=== PATIENT | female | born 2000 | race Caucasian/White ===

== ENCOUNTER 2019-03-08 02:43 | Inpatient (IN) | payer OTHER ==
[~2019-03-08] VITALS: Ht 157.5 cm; Wt 85.6 kg
[2019-03-08] VITALS (38 sets, daily range): BP systolic 92–139; BP diastolic 51–81
[2019-03-08] MEDS: LR 1,000 ML IV SCH ×3 (04:04→18:39)
[2019-03-08] MEDS ORDERED: LACTATED RINGER'S 1000 ML IV ONE (04:15)
[2019-03-08 04:19] LABS: MEAN CORPUSCULAR HEMOGLOBIN 28.2 pg (27.0-33.0); MEAN CORPUSCULAR HGB CONC 31.4 g/dl (32.0-36.5); MEAN CORPUSCULAR VOLUME 89.7 fl (80.0-96.0); PLATELET COUNT, AUTOMATED 335 10^3/uL (150-450); WHITE BLOOD COUNT 14.4 10^3/uL (4.0-10.0)
--- NOTE | 2019-03-08 04:37 | HPE ---
DATE OF ADMISSION: 03/08/2019 HISTORY: This lady is a 18-year-old 1, para 0, last menstrual period (LMP) 06/02/2018, estimated date of confinement (EDC) 03/09/2019 at 37 and 6 in active labor. No spontaneous rupture of membranes or vaginal loss. LABORATORIES: Labs are all negative, human immunodeficiency virus (HIV) negative, RPR negative, rubella immune. Varicella immune. Urine negative. Gonorrhea and chlamydia are negative. 1-hour glucose 106. Group B Streptococcus (GBS) negative. RISK FACTORS: She is a teen . Blood pressure is 132/70, respirations 18, temperature is 98.5, pulse was 85, blood pressure 132/70. Urine is 1030, pH 5, ketones +, trace blood. PHYSICAL EXAMINATION: On examination she appears distressed. Symphysis fundus height is 40. She is 2 cm -3, 100% effaced, vertex presenting, bulging membranes. She has a category one strip. Normocephalic, atraumatic. Neck: Full range of motion. Pupils equal and reactive to light. Distal pulses symmetric. No evidence of deep vein thrombosis (DVT), pulmonary embolism (PE) or superficial phlebitis. Chest is clear bilateral bases. No wheezes or rhonchi. No costovertebral angle (CVA) tenderness. Abdomen: Soft. Four quadrant bowel sounds are noted. Appropriate symphysis fundus height. She has no rashes, lesions or pruritus. She does have a nose ring. She has no arthralgia, myalgia or joint pains. No complaints of cough, wheeze, shortness of breath or dyspnea on exertion. No infection. No bleeding. Neuro complete. No incontinency, urgency or frequency. No nausea, vomiting, diarrhea or constipation. No diabetic issues. She has no abnormal Pap smear or sexually-transmitted disease (STDs). She was 17 years of age so does not have a Pap smear yet. PAST MEDICAL HISTORY: Past medical is unremarkable. PAST SURGICAL HISTORY: Unremarkable. FAMILY HISTORY: Noncontributory. SOCIAL HISTORY: She does not smoke, drink abuse drugs. She is to a soldier. No domestic violence and she has good support systems. We discussed the vaginal delivery. The delivery of baby through her vagina with possible assistance of forceps or vacuum if needed for maternal or indications. The forceps or vacuum device that can assist with vaginal delivery when normal pushing efforts cannot achieve delivery on their own or when delivery is needed in emergency for the baby's well-being, medications that may be required to augment labor in order to achieve vaginal delivery and episiotomy may be required to help baby deliver vaginally. She may also require repair of any lacerations or tears of the vagina or vulva that are caused by delivery spontaneously or otherwise. Emergencies can arise that require emergency section of delivery so quickly there is no time to do the full consent. However physician will discuss the reasoning for section basically quickly because it is the best method of delivery for the baby and well-being for that or the mother. In situations may be safer than prolonged labor and waiting for spontaneous vaginal delivery. The risks of vaginal delivery include bleeding, infection, injury to vagina, pelvic structures, injury to baby, damage to the uterus, reaction of anesthesia, rupture and remote possibility of hysterectomy or blood transfusion, hysterectomy is for life-threatening bleeding that we cannot keep under control. Uterine tachysystole, uterine rupture, heart rate abnormalities, need for emergency section or remote possibility of are hysterectomy and hemorrhage. The patient and her verbalized understanding of the risks and is anticipating the necessity of an epidural later on as she gets into more active labor. All questions were answered.
[2019-03-08] MEDS ORDERED: PROMETHAZINE INJ 25 MG/ML VIAL (J2550) As Ordered ONE (05:15)
[2019-03-08] MEDS ORDERED: PROMETHAZINE INJ 25 MG/ML VIAL (J2550) IV ONE (05:15)
[2019-03-08] MEDS ORDERED: BUTORPHANOL 2 MG/ML INJ (J0595) IV ONE (05:15)
[2019-03-08] MEDS ORDERED: BUTORPHANOL 2 MG/ML INJ (J0595) As Ordered ONE (05:16)
[2019-03-08] MEDS ORDERED: PRENTAB9 PO (05:46)
[2019-03-08] MEDS ORDERED: ZANTTAB PO (05:46)
--- NOTE | 2019-03-08 06:41 | NUR ---
0600 am unable to tollerate contractions reassessment no change cervix plan iv meds to early for epidural catagory 1 strip safe to proceed contractions q 8 minutes patient says pain level 10/10
--- NOTE | 2019-03-08 08:04 | IPNPDOC ---
Text Note Date of Service The patient was seen on 03/08/19. NOTE SBAR from Dr Bhatt Pain significant NST Cat 1, irreg ctx's Cx 5/100/-2/BBOW Epidural then recheck in 2 hrs, sooner prn Sessions A-FIB/LINK A-FIB History Current/History of A-Fib/PAF?: No VS,Fishbone, I+O VS, Fishbone, I+O Laboratory Tests 03/08/19 03:30 Red Blood Count 3.90 L, Mean Corpuscular Volume 89.7, Mean Corpuscular Hemoglobin 28.2, Mean Corpuscular Hemoglobin Concent 31.4 L, Red Cell Distribution Width 14.6 H Vital Signs Date Time Temp Pulse Resp B/P (MAP) Pulse Ox O2 Delivery O2 Flow Rate FiO2 03/08/19 06:26 98.2 81 16 108/56 (73) 03/08/19 05:20 100 I&O- Last 24 Hours up to 6 AM 03/08/19 06:00 Output Total 150 ml Balance -150 ml SESSIONS,BRODY Wright MD March 08, 2019 08:04
[2019-03-08] MEDS ORDERED: FENTANYL 2MCG/ML ROPIVACAINE 0.2% IN 0.9% NACL 100ML IVBAG As Ordered ONE (08:20)
[2019-03-08] MEDS ORDERED: NALBUPHINE HCL 10 MG/ML AMP (J2300) IV ONE (09:45)
[2019-03-08] MEDS: FENTANYL/ROPIVACAINE/NACL BAG 100 ML EPIDURAL SCH ×2 (10:20→19:02)
[2019-03-08] MEDS ORDERED: ONDANSETRON 4MG/2ML VIAL (J2405) IV PRN ×2 (11:15→21:00)
[2019-03-08] MEDS ORDERED: EPIDURAL COMMENT XX SCH (11:15)
[2019-03-08] MEDS ORDERED: REFRIGERATOR IV KEYS XX PRN (11:15)
[2019-03-08] MEDS ORDERED: NALOXONE INJ 0.4 MG/1 ML VIAL (J2310) IV PRN (11:15)
[2019-03-08] MEDS ORDERED: EPIDURAL/PCA KEYS XX PRN (11:15)
[2019-03-08] MEDS ORDERED: LACTATED RINGER'S 1000 ML IV PRN (11:15)
[2019-03-08] MEDS ORDERED: ePHEDrine SULFATE 25 MG/5 ML(5MG/ML) SYRINGE IV PRN (11:15)
[2019-03-08] MEDS ORDERED: diphenhydrAMINE INJ 50MG/ML VIAL (J1200) IV PRN (11:15)
[2019-03-08] MEDS ORDERED: LR 1,000 ML IV SCH ×2 (12:00→21:00)
[2019-03-08] MEDS ORDERED: OXYTOCIN DRIP 30 UNITS in APPROPRIATE DILUENT 1 EA IV SCH ×2 (14:00→21:01)
--- NOTE | 2019-03-08 14:01 | IPNPDOC ---
Text Note Date of Service The patient was seen on 03/08/19. NOTE At ~11 after epidural RN checked the pt, was 7 cm, BBOW. I was in the OR. I checked her at 1230 and the BBOW SROM'd, clr fluid, was 8-9 cm, all on the pt's right. Now with slight pos change, O station and 9 cm, all on the right still. Will start pitocin and recheck in 1-2 hrs, sooner prn. If no change at that time will place [facility]. Sessions A-FIB/LINK A-FIB History Current/History of A-Fib/PAF?: No VS,Fishbone, I+O VS, Fishbone, I+O Laboratory Tests 03/08/19 03:30 Red Blood Count 3.90 L, Mean Corpuscular Volume 89.7, Mean Corpuscular Hemoglobin 28.2, Mean Corpuscular Hemoglobin Concent 31.4 L, Red Cell Distribution Width 14.6 H Vital Signs Date Time Temp Pulse Resp B/P (MAP) Pulse Ox O2 Delivery O2 Flow Rate FiO2 03/08/19 13:06 99.7 03/08/19 12:58 81 18 113/56 (75) 03/08/19 05:20 100 I&O- Last 24 Hours up to 6 AM 03/08/19 06:00 Output Total 150 ml Balance -150 ml SESSIONS,BRODY Wright MD March 08, 2019 14:01
[2019-03-08] MEDS ORDERED: ACETAMINOPHEN TAB 650MG DOSE (2X325MG) PO ONE (14:15)
[2019-03-08] MEDS ORDERED: LR 1,000 ML IV ONE (14:30)
--- NOTE | 2019-03-08 16:30 | IPNPDOC ---
Text Note Date of Service The patient was seen on 03/08/19. NOTE NST Cat 2 with periods of decreased variability and a few isolated late decels. Ctx pattern looks a little dysfunctional, coupling. Cx C/C/+2 but LOP/LOT, slight asynclitism, tried to rotate the vtx but did not move past LOT. T's noted the last hour to be febrile, but heart rate is not tachycardic at this point. Start pushing, paying close attention to FHR. Sessions A-FIB/LINK A-FIB History Current/History of A-Fib/PAF?: No VS,Fishbone, I+O VS, Fishbone, I+O Laboratory Tests 03/08/19 03:30 Red Blood Count 3.90 L, Mean Corpuscular Volume 89.7, Mean Corpuscular H emoglobin 28.2, Mean Corpuscular Hemoglobin Concent 31.4 L, Red Cell Distribution Width 14.6 H Vital Signs Date Time Temp Pulse Resp B/P (MAP) Pulse Ox O2 Delivery O2 Flow Rate FiO2 03/08/19 16:00 100.2 03/08/19 15:59 80 18 103/51 (68) 03/08/19 05:20 100 I&O- Last 24 Hours up to 6 AM 03/08/19 06:00 Output Total 150 ml Balance -150 ml SESSIONS,BRODY Wright MD March 08, 2019 16:30
[2019-03-08] MEDS ORDERED: UNASYN 3 GM VIAL As Ordered ONE (16:36)
[2019-03-08] MEDS ORDERED: AMPICILLIN SOD/SULBACTAM SOD 3 GM in D5W MINI-BAG PLUS 100 ML IV SCH (17:00)
--- NOTE | 2019-03-08 18:06 | IPNPDOC ---
Text Note Date of Service The patient was seen on 03/08/19. NOTE FHT Cat 2 due to tachycardia, mostly mod pipe. Station +2, could not tell position now, significant mvmt of the vtx and no soft tissue caput present. Cont pushing, however had disc w pt and about my fears for CPD, that I will not attempt an operative vaginal delivery unless it is an outlet vacuum due to risks of shoulder dystocia and that if she has an arrest of descent will rec a . Stated understanding. Recheck ~3 hrs after started pushing. Watching FHT closely. Sessions A-FIB/LINK A-FIB History Current/History of A-Fib/PAF?: No VS,Fishbone, I+O VS, Fishbone, I+O Laboratory Tests 03/08/19 03:30 Red Blood Count 3.90 L, Mean Corpuscular Volume 89.7, Mean Corpuscular Hemoglobin 28.2, Mean Corpuscular Hemoglobin Concent 31.4 L, Red Cell Distribut ion Width 14.6 H Vital Signs Date Time Temp Pulse Resp B/P (MAP) Pulse Ox O2 Delivery O2 Flow Rate FiO2 03/08/19 16:00 100.2 03/08/19 15:59 80 18 103/51 (68) 03/08/19 05:20 100 I&O- Last 24 Hours up to 6 AM 03/08/19 06:00 Output Total 150 ml Balance -150 ml SESSIONS,BRODY Wright MD March 08, 2019 18:06
--- NOTE | 2019-03-08 19:29 | IPNPDOC ---
Text Note Date of Service The patient was seen on 03/08/19. NOTE Now has pushed for 3 hours. On exam, no descent of the bony vtx from last ch maximino. Caput only. LOP persists. Not low enough for a vacuum and I believe there is also CPD as a factor. Informed consent from the patient obtained, anesthesia and OR team assembling. Sessions A-FIB/LINK A-FIB History Current/History of A-Fib/PAF?: No VS,Fishbone, I+O VS, Fishbone, I+O Laboratory Tests 03/08/19 03:30 Red Blood Count 3.90 L, Mean Corpuscular Volume 89.7, Mean Corpuscular Hemo globin 28.2, Mean Corpuscular Hemoglobin Concent 31.4 L, Red Cell Distribution Width 14.6 H Vital Signs Date Time Temp Pulse Resp B/P (MAP) Pulse Ox O2 Delivery O2 Flow Rate FiO2 03/08/19 17:59 100.3 03/08/19 17:58 97 18 125/59 (81) 03/08/19 05:20 100 I&O- Last 24 Hours up to 6 AM 03/08/19 06:00 Output Total 150 ml Balance -150 ml SESSIONS,BRODY Wright MD March 08, 2019 19:29
[2019-03-08] MEDS ORDERED: AZITHROMYCIN INJ 500 MG, VIAL MATE ADAPTER 1 EACH in D5W 250 ML IV ONE (19:30)
[2019-03-08] MEDS ORDERED: BICITRA 30ML SOLN UDC PO ONE (19:30)
[2019-03-08] MEDS ORDERED: OXYTOCIN INJ 10 UNITS/ML VIAL (J2590) As Ordered ONE (19:39)
[2019-03-08] MEDS ORDERED: LIDOCAINE 2% W/EPIN INJ 20ML **PRES FREE As Ordered ONE (19:40)
[2019-03-08] MEDS ORDERED: MORPHINE PRES-FREE INJ 10 MG/10 ML VIAL (J2274) As Ordered ONE (19:42)
[2019-03-08] MEDS ORDERED: ONDANSETRON 4MG/2ML VIAL (J2405) As Ordered ONE (20:05)
[2019-03-08] MEDS ORDERED: dexameTHASONE 4 MG/ML 1ML VIAL (J1100) As Ordered ONE (20:14)
[2019-03-08] MEDS ORDERED: fentaNYL 100 MCG/2 ML INJECTION (J3010) As Ordered ONE (20:17)
[2019-03-08] MEDS ORDERED: KETOROLAC 60 MG/2 ML VIAL (J1885) As Ordered ONE (20:24)
[2019-03-08 20:27] LABS: CORD GAS HCO3 A 23.7 MEQ/L; CORD GAS O2 SAT A 25.3 %; CORD GAS PCO2 A 43.6 mmHg; CORD GAS PH A 7.353 UNITS; CORD GAS PO2 A 13.9 mmHg; CORD GAS SBC A 21.1 MEQ/L
[2019-03-08 20:31] LABS: CORD GAS ABE V -3.3; CORD GAS HCO3 V 21.2 MEQ/L; CORD GAS PCO2 V 36.9 mmHg; CORD GAS PH V 7.378 UNITS; CORD GAS PO2 V 23.3 mmHg; CORD GAS SBC V 20.8 MEQ/L; CORD GAS TCO2 V 22.4 MEQ/L
[2019-03-08] MEDS ORDERED: PERCOCET 5MG/325MG TAB PO PRN ×2 (21:00→21:15)
[2019-03-08] MEDS ORDERED: fentaNYL 100 MCG/2 ML INJECTION (J3010) IV PRN (21:00)
[2019-03-08] MEDS ORDERED: METOCLOPRAMIDE INJ 10MG/2ML VIAL (J2765) IV PRN (21:15)
[2019-03-08] MEDS ORDERED: RHOGAM 300 MCG (1500 IU) INJ (J2790) IM SCH (21:15)
[2019-03-08] MEDS ORDERED: MEASLES,MUMPS,RUBELLA VACCINE INJ (MMR-II) (90707) SC SCH (21:15)
[2019-03-08] MEDS ORDERED: OXYTOCIN 30 UNITS IN 0.9% NaCl 500ML IV BAG (J2590) As Ordered ONE (21:29)
[2019-03-08] MEDS ORDERED: CLINDAMYCIN 900 MG/50 ML PREMIX BAG As Ordered ONE (22:01)
[2019-03-08] MEDS: CLINDAMYCIN 900 MG in APPROPRIATE DILUENT 1 EA IV SCH (22:03)
[2019-03-08] MEDS: AMPICILLIN SOD/SULBACTAM SOD 3 GM in D5W MINI-BAG PLUS 100 ML IV SCH (23:16)
[2019-03-09] VITALS (7 sets, daily range): BP systolic 105–118; BP diastolic 55–69
[2019-03-09] MEDS: KETOROLAC 30 MG/ML VIAL (J1885) IV SCH ×3 (03:10→15:51)
[2019-03-09] MEDS: AMPICILLIN SOD/SULBACTAM SOD 3 GM in D5W MINI-BAG PLUS 100 ML IV SCH ×4 (05:19→22:55)
[2019-03-09] MEDS: CLINDAMYCIN 900 MG in APPROPRIATE DILUENT 1 EA IV SCH ×2 (06:24→14:39)
--- NOTE | 2019-03-09 07:30 | IPNPDOC ---
Text Note Date of Service The patient was seen on 03/09/19. NOTE POD1 Cesraean for arrest of descent/OP/chorio/macrosomia States feeling well, pain controlled with prescribed meds. Baby bonding and feeding well. No heavy VB. Lochia slowing. Ambulatory. Tolerating PO without issues. Rosario in place, UO adequate. VSSAF since last fever of 100.5 at 1900 last night NAD A&O RRR CTAB LE no C/C/E Ut at U-2, firm Inc with dry bandage, no induration or fluctuance CBC this AM pending a/p: Doing well. Cont routine postop care. Baby in NICU. Cont ABX for 24 hrs postop. Sessions A-FIB/LINK A-FIB History Current/History of A-Fib/PAF?: No VS,Fishbone, I+O VS, Fishbone, I+O Vital Signs Date Time Temp Pulse Resp B/P (MAP) Pulse Ox O2 Delivery O2 Flow Rate FiO2 03/09/19 05:48 98.2 92 15 105/58 (74) 03/09/19 01:19 100 I&O- Last 24 Hours up to 6 AM 03/09/19 06:00 Intake Total 5316.5 ml Output Total 4475 ml Balance 841.5 ml SESSIONS,BRODY Wright MD March 09, 2019 07:30
[2019-03-09 07:58] LABS: HEMATOCRIT 27.9 % (36.0-47.0); MEAN CORPUSCULAR HEMOGLOBIN 29.4 pg (27.0-33.0); MEAN CORPUSCULAR HGB CONC 32.3 g/dl (32.0-36.5); MEAN CORPUSCULAR VOLUME 91.2 fl (80.0-96.0); PLATELET COUNT, AUTOMATED 274 10^3/uL (150-450); RED BLOOD COUNT 3.06 10^6/uL (4.00-5.40)
[2019-03-09] MEDS: PRENATAL VITAMINS CHEWABLE TABLET PO SCH (09:45)
[2019-03-09] MEDS: DOCUSATE SODIUM 100 MG CAP PO SCH ×2 (09:45→20:30)
--- NOTE | 2019-03-09 10:58 | RO ---
DATE OF PROCEDURE: 03/08/2019 PREOPERATIVE DIAGNOSES: Arrest of descent after 3 hours of pushing, feared cephalopelvic disproportion, chorioamnionitis. POSTOPERATIVE DIAGNOSES: Arrest of descent after 3 hours of pushing, feared cephalopelvic disproportion, chorioamnionitis, confirmed macrosomia, left occiput posterior. SURGEON: Jan Parker MD LAPEL PADDER: Giselle Riggins CNM FINDINGS: Pfannenstiel skin incision, low transverse skin incision, male, LOP, firmly wedged in pelvis, 3990 grams, 8 pounds 13 ounces, scores of 7 and 8. ANESTHESIA: Epidural with Duramorph. ESTIMATED BLOOD LOSS: 500 mL. DRAINS: 100 mL from the Rosario catheter. FLUIDS REPLACED: Lactated Ringer's 1600 mL. PREOPERATIVE ANTIBIOTICS: Ancef 2 grams IV and azithromycin 500 mg IV along with one dose an hour before started pushing due to the preop diagnosis of chorioamnionitis. OPERATIVE PROCEDURE: Primary low transverse section. SPECIMEN: Placenta. INDICATION: The patient pushed for approximately 3 hours with no descent past +2. Her first 1-1/2 hours of pushing showed promise as the infant's bony vertex made significant descent, however, with next evaluation there was no descent and infant was noted to be OP with a significant amount of caput present. DESCRIPTION OF OPERATION: The patient was taken to the operating room with an IV in place. After she was placed in dorsal supine position with a leftward tilt, a time-out was performed. The epidural was already in place and being used. Rosario catheter was already in place. The patient was prepped and draped and after the epidural was confirmed to be adequate, a Pfannenstiel skin incision was carried down to the layer of fascia, which was nicked in the midline, extended bilaterally the extent of the skin incision. Solo clamps were used to tent up the fascia and the underlying rectus muscles were dissected off sharply. Rectus muscles were in the midline. The peritoneum was breeched with the surgeon's digit and an adequate peritoneal window was created. The bladder blade was placed and the vesicouterine peritoneum and bladder flap was easily created. A low transverse uterine incision was then carried down to the amnion and the incision was stretched to adequacy. Amniotomy revealed cloudy but clear fluid. Infant's head was very much wedged in the pelvis and we had prepared previously for a nurse to give me a vaginal hand if needed. However, I was able to decrease the suction and deliver the infant's head through the incision. Occipitoposterior position was confirmed. was in good shape with good tone and spontaneous cry. Cord was clamped times two and cut. Cord blood was obtained and cord gases were also obtained. Cord gases were normal with a pH of 7.35 and excess of 2. Arterial venous had a pH of 7.37 and an excess of 3.3. Placenta was delivered with fundal massage, Pitocin running wide open and traction on the cord. Uterus was then delivered through the incision, wrapped in warm sponge and the intrauterine cavity was cleared of all clots and debris with two dry sponges and ring forceps for the trailing membranes. Both apices of the uterine incision did extend down approximately 2 cm, expected for this type of deep delivery. I started at the apex of the incisions bilaterally and met in the middle with running locked 0 Vicryl suture. Hemostasis was obtained and 0 Monocryl was used to imbricate. Hemostasis was confirmed prior to placing the uterus back to anatomical state after irrigation behind the uterus. The colic gutters were cleared bilaterally and irrigated. One last look at the uterine incision confirmed hemostasis. There was never fear of bladder or bowel injury. Peritoneum was closed with a running suture of 2-0 Vicryl and the rectus muscles reapproximated with two interrupted 0 Vicryl sutures. Rectus bellies were intact and hemostatic and the fascia was closed from left to right with a running 0 Vicryl. Subcutaneous tissue was copiously irrigated and reapproximated 2-0 Vicryl. The skin was closed with a 4-0 Monocryl in subcuticular running fashion. Steri-Strips were placed over the incision and pressure dressing as well, which will be removed tomorrow. The patient will receive Unasyn and clindamycin for 24 hours postop due to her preop diagnosis of chorioamnionitis and need for . All counts were correct throughout the case including sponge, needle and instruments. CASEY
[2019-03-09] MEDS: PERCOCET 5MG/325MG TAB PO PRN (21:07)
[2019-03-09] MEDS: IBUPROFEN 800 MG TAB PO SCH (22:56)
[2019-03-10 02:00] VITALS: BP 100/53
[2019-03-10 06:00] VITALS: BP 107/56
[2019-03-10] MEDS: PERCOCET 5MG/325MG TAB PO PRN (06:06)
[2019-03-10] MEDS: PRENATAL VITAMINS CHEWABLE TABLET PO SCH (07:29)
[2019-03-10] MEDS: IBUPROFEN 800 MG TAB PO SCH (07:29)
[2019-03-10] MEDS: DOCUSATE SODIUM 100 MG CAP PO SCH (07:29)
--- NOTE | 2019-03-10 10:12 | IPNPDOC ---
Text Note Date of Service The patient was seen on 03/10/19. NOTE POD2 for arrest of descent/OP/chorio/macrosomia States feeling well, pain controlled with prescribed meds. Baby bonding and feeding well. No heavy VB. Lochia slowing. Ambulatory. Tolerating PO without issues. Rosario out and voiding UO adequate. VSSAF since last fever of 100.5 night of sugery NAD A&O RRR CTAB LE no C/C/E Ut at U-2, [employer] with dry bandage removed, no induration or fluctuance, healing nicely CBC POD1 appropr a/p: Doing well. Cont routine postop care. Baby in NICU. D/C to boarding, NICU baby to be dc/'d likely tomorrow. Sessions A-FIB/LINK A-FIB History Current/History of A-Fib/PAF?: No VS,Fishbone, I+O VS, Fishbone, I+O Vital Signs Date Time Temp Pulse Resp B/P (MAP) Pulse Ox O2 Delivery O2 Flow Rate FiO2 03/10/19 06:36 18 03/10/19 06:00 96.8 58 107/56 (73 98 I&O- Last 24 Hours up to 6 AM 03/10/19 06:00 Intake Total 800 ml Output Total 2400 ml Balance -1600 ml SESSIONS,BRODY Wright MD March 10, 2019 10:12
--- NOTE | 2019-03-10 10:14 | DS.PDOC ---
Discharge Summary General Date of Admission March 08, 2019 at 04:15 Date of Discharge [id number] Discharge Summary ADMITTING DIAGNOSES: labor DISCHARGE DIAGNOSES: PLTCS for arrest of descent, Chrioamnionitis, NICU admission for baby HOSPITAL COURSE: Labor course a bit prolonged but progressed to C/C, never descended past +2 station despite 3 hours excellent pushing, and was straight OP. delivery uncomplicated. course uncomplicated. DISCHARGE MEDICATIONS: Motrin, Lanolin, Percocet, Nor, Colace DISCHARGE INSTRUCTIONS: Nothing in the vagina for 6 weeks. No driving for 2 weeks. No bathing for 4 weeks, shower only. F/U in OBGYN clinic in 1-2 weeks for incision check and routine follow-up in 6-8 weeks. Sessions Vital Signs/I&Os Vital Signs Date Time Temp Pulse Resp B/P (MAP) Pulse Ox O2 Delivery O2 Flow Rate FiO2 03/10/19 06:36 18 03/10/19 06:00 96.8 58 107/56 (73) 98 I&O- Last 24 Hours up to 6 AM 03/10/19 06:00 Intake Total 800 ml Output Total 2400 ml Balance -1600 ml Discharge Medications Scheduled No.137/Iron/Folic Acd ( Vitamin Tablet) 1 Each Tablet, 1 TAB PO DAILY, (Reported) Ranitidine Hcl (Zantac) 150 Mg Tablet, 1 TAB PO BID, (Reported) Allergies Coded Allergies: No Known Allergies (Unverified , 03/08/19) SESSIONSBRODY MD March 10, 2019 10:14
[2019-03-10] MEDS ORDERED: PERCOCET PO (10:17)
[2019-03-10] MEDS ORDERED: COLA100C5 PO (10:17)
[2019-03-10] MEDS ORDERED: IBUP80TA PO (10:17)
== END 2019-03-10 14:36 | disposition home or self-care (01) | DRG 771 ==
LOC: M LDO 02:43 → M LDI 04:15 → M OBS 22:30
PROVIDERS: ADMIT Obstetrics & Gynecology; ATTEND Obstetrics & Gynecology
PROC: 10D00Z1 Extraction of Products of Conception, Low, Open Approach (ICD-10-PCS; principal; 2019-03-08 19:47)
DX: O32.4XX0 Maternal care for high head at term, not applicable or unspecified (principal); O41.1230 Chorioamnionitis, third trimester, not applicable or unspecified; Z37.0 Single live birth; Z3A.39 39 weeks gestation of pregnancy; O36.63X0 Maternal care for excessive fetal growth, third trimester, not applicable or unspecified; O76 Abnormality in fetal heart rate and rhythm complicating labor and delivery